=== PATIENT | male | born 1990 | race Two or more races ===

== ENCOUNTER 2020-02-04 01:36 | Emergency (ER) | payer OTHER ==
[~2020-02-04] VITALS: Ht 172.7 cm; Wt 79.4 kg
[2020-02-04 01:36] VITALS: BP 125/79
== END 2020-02-04 02:02 ==
LOC: ER 01:36
DX: Z02.89 Encounter for other administrative examinations (principal); V49.49XA Driver injured in collision with other motor vehicles in traffic accident, initial encounter; Y93.89 Activity, other specified; Y92.488 Other paved roadways as the place of occurrence of the external cause; Y99.8 Other external cause status